=== PATIENT | female | born 1985 | race American Indian/Alaskan Native ===

== ENCOUNTER 2019-04-25 09:58 | Emergency (ER) | payer BC ==
[2019-04-25 10:19] VITALS: BP 149/94
[2019-04-25] MEDS ORDERED: KETOROLAC 60 MG/2 ML INJ IM ONE (11:46)
[2019-04-25] MEDS ORDERED: CYCLOBENZAPRINE 10 MG TAB PO ONE (11:48)
--- NOTE | 2019-04-25 11:50 | Emergency Department Report ---
HPI - General Chief Complaint: Back Pain/Injury - HPI HPI: 34-year-old -Chinese female presents to the emergency department with the complaint of a two-week history of some back pain, chest wall pain. She denies any fall, trauma/injury, or any known inciting event. She saw her primary care physician for this about 2 weeks ago and had some blood work, urine and x-rays done that she says came back normal. She has been taking ibuprofen and tizanidine, prescribed by the PCP, without much relief. She denies any dysuria, vaginal bleeding or discharge, shortness of breath, problems with bowel or bladder, numbness or paresthesias, or any neurological deficits. She has a past medical history of anemia. ED Past Medical Hx - Past Medical History Previous Medical History?: Yes Additional medical history: Anemia - Surgical History Past Surgical History?: No - Social History Smoking Status: Never Smoker Substance Use Type: None - Medications Home Medications: Home Medications Medication Instructions Recorded Confirmed Last Taken Type traMADoL [Ultram 50 MG tab] 50 mg PO Q8H PRN #10 tablet 04/25/19 Unknown Rx ED Review of Systems ROS: Stated complaint: NOT FEELING WELL Other details as noted in HPI Comment: All other systems reviewed and negative Constitutional: denies: chills, fever Cardiovascular: chest pain (chest wall pain) Gastrointestinal: denies: abdominal pain, vomiting Genitourinary: denies: dysuria, discharge, abnormal menses Musculoskeletal: back pain, arthralgia, myalgia. denies: joint swelling Skin: denies: rash, lesions Neurological: denies: headache, weakness Physical Exam - Physical Exam Vital Signs: Vital Signs 04/25/19 10:18 Temperature 98.4 F Pulse Rate 96 H Respiratory 16 Rate Blood Pressure 149/94 [Right] O2 Sat by Pulse 98 Oximetry Physical Exam: GENERAL: The patient is well-developed well-nourished. HENT: Normocephalic. Atraumatic. Patient has moist mucous membranes. EYES: Extraocular motions are intact. NECK: Supple. Trachea is midline. CHEST/LUNGS: Clear to auscultation. There is no respiratory distress noted. There is some reproducible chest wall pain to palpation. No crepitus or deformity. HEART/CARDIOVASCULAR: Regular. There is no tachycardia. There is no murmur. ABDOMEN: Abdomen is soft, nontender. Patient has normal bowel sounds. There is no abdominal distention. SKIN: Skin is warm and dry. NEURO: The patient is awake, alert, and oriented. The patient is cooperative. The patient has no focal neurologic deficits. Normal speech. MUSCULOSKELETAL: There is no tenderness or deformity. There is no limitation range of motion. There is no evidence of acute injury. BACK: There is both midline and bilateral paraspinal lumbar tenderness to palpation but no step-off or deformity. ED Course Vital Signs 04/25/19 10:18 Temperature 98.4 F Pulse Rate 96 H Respiratory 16 Rate Blood Pressure 149/94 [Right] O2 Sat by Pulse 98 Oximetry ED Medical Decision Making - Radiology Data Radiology results: image reviewed interpreted by me: Chest x-ray does not show any acute process. There are no pleural effusions, obvious pneumonia and there is no pneumothorax. X-ray of the lumbar spine does not show any fracture, subluxation, or any acute process. - Medical Decision Making This patient presents with the complaint of some low back pain that radiates up and around towards the chest. No shortness of breath, cough, fever. Heart and lungs sounds are normal to auscultation. There is some reproducible back pain to palpation but no step-off or deformity. X-ray was done of the chest that does not show any pneumonia, pleural effusions, pneumothorax, focal consolidation, or any other acute process. X-ray of the lumbar spine does not show any fracture, subluxation, or any other acute process. Her vital signs stable throughout her ED course. The patient appears safe for discharge home at this time but has been encouraged to follow up with her primary care physician. She will return to the emergency Department with any worsening of her symptoms or any acute distress. - Differential Diagnosis costochondritis, muscle spasm, radiculopathy Critical Care Time: No Critical care attestation.: If time is entered above; I have spent that time in minutes in the direct care of this critically ill patient, excluding procedure time. ED Disposition Clinical Impression: Chest wall pain, Musculoskeletal pain Back pain Qualifiers: Back pain location: low back pain Chronicity: unspecified Back pain laterality: bilateral Sciatica presence: without sciatica Qualified Code(s): M54.5 - Low back pain Disposition: - TO HOME OR SELFCARE Is pt being admited?: No Condition: Stable Instructions: Costochondritis (ED), Back Pain (ED) Additional Instructions: Please follow-up with your primary care physician in the next few days. Return to the emergency Department with any worsening of your symptoms or any acute distress. I am also giving you a referral for a local orthopedist, Dr. Kelsey, to follow up regarding your back and musculoskeletal pains. You have been prescribed a medication that is sedating and therefore should not be taken prior to driving, working, and responsible for children and in no way should be mixed with alcohol of any quantity. Also, this medication should be taken in place of the muscle relaxer and not taken with that as this would cause increased sedation and respiratory depression. Prescriptions: traMADoL [Ultram 50 MG tab] 50 mg PO Q8H PRN #10 tablet PRN Reason: Pain Referrals: JORGE KELSEY MD [Staff Physician] - 2-3 Days PCP, Your [Other] - 2-3 Days Forms: Work/School Release Form(ED) Time of Disposition: 12:36
--- NOTE | 2019-04-25 12:31 | XRay Report ---
LUMBAR SPINE 2 VIEWS INDICATION: Back pain. COMPARISON: No relevant prior imaging study available. FINDINGS: VERTEBRAE: No acute fracture. Normal alignment. DISC SPACES: No significant abnormality. FACET JOINTS: No significant abnormality. SOFT TISSUES: No significant abnormality. ADDITIONAL FINDINGS: No additional significant findings. IMPRESSION: No significant abnormality of the lumbar spine. Signer Name: Javon Faustin MD Signed: 04/25/2019 12:26 PM Workstation Name: [id number]
--- NOTE | 2019-04-25 12:32 | XRay Report ---
CHEST 2 VIEWS INDICATION / CLINICAL INFORMATION: Chest wall pain, rib pain. COMPARISON: None available. FINDINGS: SUPPORT DEVICES: None. HEART / MEDIASTINUM: No significant abnormality. LUNGS / PLEURA: No significant pulmonary or pleural abnormality. No pneumothorax. ADDITIONAL FINDINGS: No significant additional findings. IMPRESSION: 1. No acute abnormality of the chest. Signer Name: Javon Faustin MD Signed: 04/25/2019 12:27 PM Workstation Name: [id number]
== END 2019-04-25 13:05 | disposition home or self-care (01) ==
LOC: ED 09:58
DX: M54.5 Low back pain (principal); R07.89 Other chest pain; D64.9 Anemia, unspecified; Z79.899 Other long term (current) drug therapy
CPT/HCPCS: 71046; 72100; 96372; 99283; J1885